=== PATIENT | female | born 1960 | race Caucasian/White ===

== ENCOUNTER 2018-01-06 21:31 | Inpatient (IN) | payer OTHER ==
[2018-01-06 21:57] LABS: Absolute Lymphocytes (CBC) 0.4 K/uL (0.7-4.9); Absolute Monocytes 0.4 K/uL (0.1-1.3); Absolute Neutrophil 2.8 K/uL (1.8-8.0); Basophils % 0.2 % (0-1.3); Eosinophils % 2.1 % (0-4.4); Hematocrit 33.8 % (36.0-45.0); Lymphocytes % 9.7 % (15.3-44.8); MCH 32.4 pg (27.0-35.0); MCV 92.7 fL (80-100); MPV 7.9 fL (7.6-11.3); Monocytes % 11.2 % (3.3-12.3); RBC Red Blood Cell Count 3.65 M/uL (3.86-4.86)
[2018-01-06 22:06] LABS: Bicarbonate 30 mEq/L (21-31); Glucose Level 126 mg/dL (65-120); Lipase 11 U/L (22-51); Sodium Level 138 mEq/L (135-145)
[2018-01-06] MEDS ORDERED: ONDANSETRON 4 MG/2 ML VIAL ONE (22:06)
[2018-01-06] MEDS ORDERED: FAMOTIDINE 20 MG/2 ML VIAL IV ONE (22:06)
[2018-01-06] MEDS ORDERED: MORPHINE 4 MG/ML SYR ONE ×3 (22:06→23:53)
[2018-01-06] MEDS ORDERED: NA CHLORIDE 0.9% 1,000 ML ONE (22:06)
[2018-01-06 22:12] LABS: ALT/SGPT 13 IU/L (10-60); AST/SGOT 23 IU/L (10-42); Albumin 3.3 g/dL (3.2-5.5); Alkaline Phosphatase 85 IU/L (42-121); BUN Blood Urea Nitrogen 21 mg/dL (6-20); Bilirubin Direct < 0.1 mg/dL (0-0.2); Bilirubin Total 0.7 mg/dL (0.3-1.2); Glomerular Filtration Rate > 90 mL/min (=/>90)
[2018-01-06 22:48] LABS: Urine Blood 3+ (NEG); Urine Glucose NEGATIVE (NEG); Urine Protein 3+ (NEG); Urine Specific Gravity 1.025 (1.005-1.030)
[2018-01-06 22:51] LABS: Urine Bacteria >50 /HPF (<20); Urine Culture Reflex Order REFLEXED; Urine RBC >50 /HPF (NONE SEEN); Urine Yeast PRESENT (NONE SEEN); Urine Yeast with Hyphae PRESENT
[2018-01-06 22:52] LABS: Urine Mucus HEAVY /HPF (NONE SEEN)
[2018-01-06] MEDS ORDERED: PROMETHAZINE 25 MG/ML VIAL ONE (23:00)
[2018-01-06] MEDS ORDERED: NA CHLORIDE 0.9% 100 ML IV ONE (23:00)
[2018-01-06] MEDS ORDERED: PIPER/TAZO/NS 3.375gm 3.375 GM/100 ML BAG ONE (23:38)
--- NOTE | 2018-01-07 01:27 | ER ---
Nurse's Notes [facility] Name: Antoinette Chao Age: 57 yrs Sex: Female : 1960 Arrival Date: 01/06/2018 Time: 21:33 Bed 4 Private MD: Diagnosis: Acute abdominal pain;acute small bowel obstruction;Acute UTI Presentation: 01/06 21:35 Presenting complaint: EMS states: that pt has been having nausea and vomiting x 5 days. fc Has had no solid food x 5 days and no fluids po x 3 days. Pt also having increased pain to lower abd and legs. Transition of care: patient was not received from another setting of care. Onset of symptoms was January 01, 2018. Care prior to arrival: None. 21:35 Acuity: CRISTINA 2 21:35 Method Of Arrival: EMS: [facility] Assessment: 22:03 General: Appears uncomfortable, slender, Behavior is crying, restless. Pain: Complains ak1 of pain in abdomen. EENT: No signs and/or symptoms were reported regarding the EENT system. Neuro: No deficits noted. Cardiovascular: No deficits noted. Respiratory: No deficits noted. GI: Abdomen is flat, Colostomy site is clean and dry. Ostomy appliance is intact. Reports lower abdominal pain, upper abdominal pain, tolerance of fluids, tolerance of food, vomiting, since 3 to 5 days [employer]OX [employer]. : No signs and/or symptoms were reported regarding the genitourinary system. Derm: No signs and/or symptoms reported regarding the dermatologic system. Musculoskeletal: No signs and/or symptoms reported regarding the musculoskeletal system. Historical: - Allergies: 21:39 Latex, Natural Rubber; fc 21:39 Ciprofloxacin; fc - Home Meds: 21:39 Anaspaz 0.125 mg oral TbDL 1 tab q 6 hrs prn [Active]; gabapentin 300 mg oral cap 3 fc caps q 6 hrs [Active]; tramadol 50 mg Oral tab 2 tabs every 6 hrs [Active]; Zofran (as hydrochloride) 8 mg Oral tab 1 tab every 6 hours [Active]; meloxicam 7.5 mg oral tab 1 tab once daily [Active]; Percocet 7.5-325 mg Oral tab .5 tab q 6hrs prn [Active]; Flexeril 5 mg Oral tab 1 tab q 8hrs prn [Active]; Compazine 10 mg Oral tab 1 tab q 6 hrs prn [Active]; - PMHx: 21:39 Stage 4 rectal cancer with mets; fc - PSHx: 21:39 port a cath; Bowel resection; fc - Immunization history:: Last tetanus immunization: unknown. - Social history:: Smoking status: Patient/guardian denies using tobacco. - Family history:: not pertinent. - Hospitalizations: : No recent hospitalization is reported. Screenin:35 Abuse screen: Denies threats or abuse. Nutritional screening: Has had N/V for 3 or more fc days. Tuberculosis screening: No symptoms or risk factors identified. Fall Risk None identified. Assessment: 22:05 Reassessment: Patient appears in no apparent distress at this time. No changes from ak1 previously documented assessment. see triage assessment. 22:32 General: Appears uncomfortable, ill, slender, Behavior is crying, restless, Reports ak1 pain 10/[address] Kelton Summers at [facility] oncology. . 22:33 Reassessment: pt vomited green bile, ERP notified for new orders due to vomiting. will ak1 continue to monitor. 23:45 Reassessment: pt tolerated NG well. pt with relief from low intermittent suction. ak1 01/07 01:20 Reassessment: Patient and/or family updated on plan of care and expected duration. Pain ak1 level reassessed. Patient states feeling better. Patient states symptoms have improved. Vital Signs: 01/06 21:35 BP 117 / 73; Pulse 102; Resp 18; Temp 97.7(O); Pulse Ox 100% on R/A; Weight 48.08 kg fc (R); Height 5 ft. 2 in. (157.48 cm) (R); Pain 10/10; 22:42 BP 114 / 58; Pulse 94; Resp 20; Temp 97.8(TE); Pulse Ox 100% on R/A; Pain 10/10; ak1 23:43 BP 147 / 76; Pulse 101; Resp 20; Temp 97.8(TE); Pulse Ox 100% on R/A; Pain 8/10; ak1 01/07 01:19 BP 109 / 52; Pulse 106; Resp 18; Temp 98.; Pulse Ox 100% on R/A; ak1 01/06 21:35 Body Mass Index 19.39 (48.08 kg, 157.48 cm) ED Course: 01/06 21:33 Patient arrived in ED. em1 21:35 Quincy Hernandez MD is Attending Physician. wa 21:35 Arm band placed on Patient placed in an exam room, on a stretcher. fc 21:35 Patient has correct armband on for positive identification. Placed in gown. Bed in low fc position. Call light in reach. Side rails up X2. 21:35 No provider procedures requiring assistance completed. fc 21:41 Triage completed. fc 21:42 Camila Bruce, RN is Primary Nurse. ak1 21:48 Initial lab(s) drawn, by ED staff, sent to lab. 3 22:02 Accessed Port-a-Cath. using accessed w/ # 20 Marte needle, ,sterile technique, per [address] protocol. Clean \T\ dry. Dressing intact. Good blood return. Flushes easily. 22:31 Urine collected: Lindo catheter specimen, tea colored, blood tinged, stool sample ak1 obtained from ostomy bag and sent to lab. 22:35 Urine Dipstick--Ancillary (enter results) Sent. ak1 23:37 NGT: inserted 12 Fr. via left nare. verified placement of air over stomach, verified tl2 return of gastric contents, to intermittent suction. Returned gastric contents. Returned bile. Patient tolerated well. 01/07 01:25 Gary Hercules MD is Hospitalizing Provider. hi 01:33 Patient admitted, IV remains in place. ak1 Administered Medications: 01/06 21:57 Drug: NS 0.9% 1000 ml Route: IV; Rate: 1000 ml; Site: Port-a-cath; tl2 23:17 Follow up: IV Status: Completed infusion ak1 21:57 Drug: Zofran 4 mg Route: IVP; Site: Port-a-cath; tl2 22:35 Follow up: Response: Nausea unchanged; Vomiting unchanged ak1 21:57 Drug: Pepcid 20 mg Route: IVP; Site: Port-a-cath; tl2 22:34 Follow up: Response: No adverse reaction ak1 21:58 Drug: morphine 4 mg Route: IVP; Site: Port-a-cath; tl2 22:35 Follow up: Response: No adverse reaction; Pain is unchanged, physician notified ak1 22:11 Drug: morphine 4 mg Route: IVP; Site: Port-a-cath; tl2 22:35 Follow up: Response: No adverse reaction; Pain is unchanged, physician notified ak1 22:46 Drug: Phenergan 12.5 mg Route: IVP; Site: Port-a-cath; ak1 23:17 Follow up: Response: No adverse reaction ak1 23:36 Drug: morphine 4 mg Route: IVP; Site: Port-a-cath; tl2 01/07 00:10 Follow up: Response: No adverse reaction ak1 01/06 23:36 Drug: Zosyn 3.375 grams Route: IVPB; Infused Over: 60 mins; Site: Port-a-cath; tl2 01/07 00:10 Follow up: IV Status: Completed infusion ak1 01:34 Follow up: IV Status: Completed infusion ak1 Outcome: 01:27 Decision to Hospitalize by Provider. hi 01:33 Condition: stable ak1 02:07 Admitted to Med/surg accompanied by tech, via stretcher, room 205, with chart. ak1 02:33 Patient left the ED. tl2 Signatures: Jackie Headley RN Felipe Partida em1 Camila Bruce RN RN ak1 Irasema Stafford RN RN tl2 aCrol Ann Dougherty 3 Quincy Hernandez MD MD hi
--- NOTE | 2018-01-07 01:28 | EDPHYS ---
Physician Documentation [facility] Name: Antoinette Chao Age: 57 yrs Sex: Female : 1960 Arrival Date: 01/06/2018 Time: 21:33 Bed 4 Private MD: ED Physician Quincy Hernandez HPI: 01/07 01:56 This 57 yrs old Female presents to ER via EMS with complaints of wa Nausea/Vomiting. 01:56 The patient presents to the emergency department with nausea, vomiting, abdominal pain, wa of the abdomen, described as achy, sharp, steady, and does not radiate. Onset: The symptoms/episode began/occurred 5 day(s) ago, and became worse today, inability to keep food and liquids down. severe pain. Possible causes: unknown, h/o rectal CA with mets. The symptoms are aggravated by nothing. The symptoms are alleviated by food . Associated signs and symptoms: Pertinent positives: abdominal pain, nausea, vomiting, Pertinent negatives: constipation, diarrhea, dysuria, fever. Severity of symptoms: At their worst the symptoms were severe in the emergency department the symptoms are worse. chronic pain but vomiting is acute. The patient has not recently seen a physician. Historical: - Allergies: 01/06 21:39 Latex, Natural Rubber; fc 21:39 Ciprofloxacin; fc - Home Meds: 21:39 Anaspaz 0.125 mg oral TbDL 1 tab q 6 hrs prn [Active]; gabapentin 300 mg oral cap 3 fc caps q 6 hrs [Active]; tramadol 50 mg Oral tab 2 tabs every 6 hrs [Active]; Zofran (as hydrochloride) 8 mg Oral tab 1 tab every 6 hours [Active]; meloxicam 7.5 mg oral tab 1 tab once daily [Active]; Percocet 7.5-325 mg Oral tab .5 tab q 6hrs prn [Active]; Flexeril 5 mg Oral tab 1 tab q 8hrs prn [Active]; Compazine 10 mg Oral tab 1 tab q 6 hrs prn [Active]; - PMHx: 21:39 Stage 4 rectal cancer with mets; fc - PSHx: 21:39 port a cath; Bowel resection; fc - Immunization history:: Last tetanus immunization: unknown. - Social history:: Smoking status: Patient/guardian denies using tobacco. - Family history:: not pertinent. - Hospitalizations: : No recent hospitalization is reported. ROS: 01/07 01:59 Constitutional: Negative for fever, chills, and weight loss, Eyes: Negative for injury, wa pain, redness, and discharge, ENT: Negative for injury, pain, and discharge, Neck: Negative for injury, pain, and swelling, Cardiovascular: Negative for chest pain, palpitations, and edema, Respiratory: Negative for shortness of breath, cough, wheezing, and pleuritic chest pain, Back: Negative for injury and pain, MS/Extremity: Negative for injury and deformity, Skin: Negative for injury, rash, and discoloration, Neuro: Negative for headache, weakness, numbness, tingling, and seizure, Psych: Negative for depression, anxiety, suicide ideation, homicidal ideation, and hallucinations. Abdomen/GI: Positive for abdominal pain, nausea and vomiting, nausea, vomiting, rectal pain, Negative for diarrhea. All other systems are negative. Exam: 02:01 Constitutional: This is a well developed, well nourished patient who is awake, alert, wa and in no acute distress. Head/Face: Normocephalic, atraumatic. Eyes: Pupils equal round and reactive to light, extra-ocular motions intact. Lids and lashes normal. Conjunctiva and sclera are non-icteric and not injected. Cornea within normal limits. Periorbital areas with no swelling, redness, or edema. Neck: Trachea midline, no thyromegaly or masses palpated, and no cervical lymphadenopathy. Supple, full range of motion without nuchal rigidity, or vertebral point tenderness. No Meningismus. Chest/axilla: Normal chest wall appearance and motion. Nontender with no deformity. No lesions are appreciated. Cardiovascular: Regular rate and rhythm with a normal S1 and S2. No gallops, murmurs, or rubs. Normal PMI, no JVD. No pulse deficits. Respiratory: Lungs have equal breath sounds bilaterally, clear to auscultation and percussion. No rales, rhonchi or wheezes noted. No increased work of breathing, no retractions or nasal flaring. Back: No spinal tenderness. No costovertebral tenderness. Full range of motion. Skin: Warm, dry with normal turgor. Normal color with no rashes, no lesions, and no evidence of cellulitis. MS/ Extremity: Pulses equal, no cyanosis. Neurovascular intact. Full, normal range of motion. Neuro: Awake and alert, GCS 15, oriented to person, place, time, and situation. Cranial nerves II-XII grossly intact. Motor strength 5/5 in all extremities. Sensory grossly intact. Cerebellar exam normal. Normal gait. Psych: Awake, alert, with orientation to person, place and time. Behavior, mood, and affect are within normal limits. 02:01 ENT: Mouth: Oral mucosa: dry, Posterior pharynx: dry. 02:02 Abdomen/GI: Inspection: distension, that is moderate, Bowel sounds: diminished, wa Palpation: moderate abdominal tenderness, in all quadrants. Vital Signs: 01/06 21:35 BP 117 / 73; Pulse 102; Resp 18; Temp 97.7(O); Pulse Ox 100% on R/A; Weight 48.08 kg fc (R); Height 5 ft. 2 in. (157.48 cm) (R); Pain 10/10; 22:42 BP 114 / 58; Pulse 94; Resp 20; Temp 97.8(TE); Pulse Ox 100% on R/A; Pain 10/10; ak1 23:43 BP 147 / 76; Pulse 101; Resp 20; Temp 97.8(TE); Pulse Ox 100% on R/A; Pain 8/10; ak1 01/07 01:19 BP 109 / 52; Pulse 106; Resp 18; Temp 98.; Pulse Ox 100% on R/A; ak1 01/06 21:35 Body Mass Index 19.39 (48.08 kg, 157.48 cm) Procedures: 02:07 Performed NG tube placement. NG tube placed through R nostril. pt tolerated well. wa MDM: 01/06 21:35 Patient medically screened. mi 01/07 02:02 Differential diagnosis: Nonspecific abd pain, gastritis, cholecystitis, pancreatitis, wa diverticulitis, viral gastroenteritis, r/o obstruction. Data reviewed: vital signs, nurses notes, lab test result(s), EKG, radiologic studies. Test interpretation: by ED physician or midlevel provider: labs noted for pyuria. . 02:05 Test interpretation: by ED physician or midlevel provider: labs noted for dimished wbc wa 4.6. low plt at 151. hyperglycemia of 157. Test interpretation: by ED physician or midlevel provider: CT abd/pelvis: read as SBO by radiologist. Response to treatment: the patient's symptoms have mildly improved after treatment. 02:08 Special discussion: required several rounds of IV morphine to pain control . will admit mi and consult surgery. 01/06 21:41 Order name: Basic Metabolic Panel mi 01/06 21:41 Order name: CBC with Diff mi 01/06 21:41 Order name: Hepatic Function mi 01/06 21:41 Order name: Lipase mi 01/06 21:41 Order name: Urine Microscopic Only mi 01/06 21:44 Order name: Occult Blood mi 01/06 21:44 Order name: Fecal Leukocyte Stain mi 01/06 21:44 Order name: CDIFF mi 01/06 21:59 Order name: CBC with Automated Diff [facility] 01/06 22:06 Order name: Basic Metabolic Panel [facility] 01/06 22:06 Order name: Lipase [facility] 01/06 22:13 Order name: Liver (Hepatic) Function [facility] 01/06 22:30 Order name: Urine Dipstick--Ancillary (enter results) [facility] 01/06 22:48 Order name: Urine Dipstick-Ancillary [facility] 01/06 21:41 Order name: IV Saline Lock; Complete Time: 21:43 mi 01/06 21:41 Order name: Labs collected and sent; Complete Time: 21:43 mi 01/06 21:41 Order name: Urine Dipstick-Ancillary (obtain specimen); Complete Time: 22:26 mi 01/06 21:42 Order name: CT Abd/Pelvis - Without Cont mi 01/06 22:52 Order name: Urine Microscopic Only; Complete Time: 22:57 [facility] 01/06 22:56 Order name: NG Tube; Complete Time: 23:36 mi Administered Medications: 01/06 21:57 Drug: NS 0.9% 1000 ml Route: IV; Rate: 1000 ml; Site: Port-a-cath; tl2 23:17 Follow up: IV Status: Completed infusion ak1 21:57 Drug: Zofran 4 mg Route: IVP; Site: Port-a-cath; tl2 22:35 Follow up: Response: Nausea unchanged; Vomiting unchanged ak1 21:57 Drug: Pepcid 20 mg Route: IVP; Site: Port-a-cath; tl2 22:34 Follow up: Response: No adverse reaction ak1 21:58 Drug: morphine 4 mg Route: IVP; Site: Port-a-cath; tl2 22:35 Follow up: Response: No adverse reaction; Pain is unchanged, physician notified ak1 22:11 Drug: morphine 4 mg Route: IVP; Site: Port-a-cath; tl2 22:35 Follow up: Response: No adverse reaction; Pain is unchanged, physician notified ak1 22:46 Drug: Phenergan 12.5 mg Route: IVP; Site: Port-a-cath; ak1 23:17 Follow up: Response: No adverse reaction ak1 23:36 Drug: morphine 4 mg Route: IVP; Site: Port-a-cath; tl2 01/07 00:10 Follow up: Response: No adverse reaction ak1 01/06 23:36 Drug: Zosyn 3.375 grams Route: IVPB; Infused Over: 60 mins; Site: Port-a-cath; tl2 01/07 00:10 Follow up: IV Status: Completed infusion ak1 01:34 Follow up: IV Status: Completed infusion ak1 Disposition: 01/07/18 01:27 Hospitalization ordered by Gary Hercules for Inpatient Admission. Preliminary diagnosis are Acute abdominal pain, acute small bowel obstruction, Acute UTI. - Bed requested for Telemetry/MedSurg (observation). - Status is Inpatient Admission. tl2 - Condition is Stable. - Problem is an acute exacerbation. - Symptoms have improved. UTI on Admission? Yes Signatures: Dispatcher [employer] Mago Antony RN RN kl Chretien, Felicia, RN RN fc Krenek, Amber, RN RN ak1 Irasema Stafford RN RN tl2 Quincy Hernandez MD MD wa
[2018-01-07] MEDS ORDERED: MORPHINE 2 MG/ML SYR IV PRN (02:53)
[2018-01-07] MEDS: ONDANSETRON 4 MG/2 ML VIAL IV PRN ×3 (02:58→20:59)
[2018-01-07] MEDS: NA CHLORIDE 0.9% 1,000 ML IV SCH ×3 (02:59→22:11)
[2018-01-07] MEDS ORDERED: PHENOL 1.4% ORAL SPRAY 180ML MM PRN (04:01)
[2018-01-07] MEDS: PROMETHAZINE 25 MG/ML VIAL IV PRN ×2 (04:12→17:30)
[2018-01-07 05:27] LABS: Absolute Lymphocytes (CBC) 0.3 K/uL (0.7-4.9); Absolute Monocytes 0.5 K/uL (0.1-1.3); Basophils % 0.3 % (0-1.3); Eosinophils % 2.9 % (0-4.4); MCH 31.6 pg (27.0-35.0); MCV 94.9 fL (80-100); Monocytes % 12.3 % (3.3-12.3); RBC Red Blood Cell Count 3.26 M/uL (3.86-4.86)
[2018-01-07 05:53] LABS: ALT/SGPT 10 IU/L (10-60); AST/SGOT 20 IU/L (10-42); Albumin 2.8 g/dL (3.2-5.5); Alkaline Phosphatase 75 IU/L (42-121); BUN Blood Urea Nitrogen 19 mg/dL (6-20); Bicarbonate 29 mEq/L (21-31); Bilirubin Total 0.6 mg/dL (0.3-1.2); Glomerular Filtration Rate > 90 mL/min (=/>90); Glucose Level 109 mg/dL (65-120); Potassium 3.8 mEq/L (3.6-5.0); Protein, Total 5.8 g/dL (6.0-8.3); Sodium Level 139 mEq/L (135-145)
--- NOTE | 2018-01-07 05:53 | P.HP ---
Certification for Inpatient Patient admitted to: Inpatient With expected LOS: >2 Midnights Practitioner: I am a practitioner with admitting privileges, knowledge of patient current condition, hospital course, and medical plan of care. Services: Services provided to patient in accordance with Admission requirements found in Title 42 Section 412.3 of the Code of Federal Regulations Patient History Date of Service: 01/07/18 Reason for admission: SBO History of Present Illness: Ms Chao is a 57 years old woman with history of stage IV coloractal cancer, S/P colon resection with subsequent colostoma and suprapubic cahteter placement, who came to ED complaining of abdominal pain associated with nausea and vomiting. Her abdominal pain is described as sharp, constant, 8/10 of intensity. She was not able to keep solid or liquids down. The patient denied fever or chills, however, she has had diaphoretics episodes. She states that previously to start with her symptoms, she ate stake and coleslaw. She has had SBO obstruction in the past and was told to be careful with this kind of food. In ER she was afebrile, WBC within normal limits, UA abnormal as expected in a patient with chronic catheter placement. CT abd/pelvis remarkable for SBO. The patient then had placed a NGT, improving her symptoms. Allergies adhesive Allergy (Verified 01/07/18 02:58) Hives Latex, Natural Rubber Allergy (Verified 01/07/18 01:39) Shortness of breath neomycin Allergy (Verified 01/07/18 02:58) Hives ciprofloxacin Adverse Reaction (Verified 01/07/18 01:39) Itching/Hives/Rash Home Medications: Cyclobenzaprine HCl [Flexeril] 5 mg PO Q8HP PRN 01/07/18 Gabapentin [Neurontin] 900 mg PO Q6H 01/07/18 Hyoscyamine Sulfate [Anaspaz] 0.125 mg PO Q6HP PRN 01/07/18 Meloxicam 7.5 mg PO DAILY 01/07/18 Ondansetron HCl [Zofran] 8 mg PO Q6HP PRN 01/07/18 Oxycodone HCl/Acetaminophen [Percocet 5-325 mg Tablet] 0.5 tab PO Q6HP PRN 01/07 Prochlorperazine Maleate [Compazine] 10 mg PO Q6HP PRN 01/07/18 Tramadol HCl [Ultram] 100 mg PO Q6H 01/07/18 - Past Medical/Surgical History Has patient received pneumonia vaccine in the past: Yes Diabetic: No -: Stage 4 cancer with mets -: colostomy -: APR -: Suprapubic catheter - Family History Mother -: Cancer Father -: Heart disease - Social History Smoking Status: Never smoker Alcohol use: No CD- Drugs: No Caffeine use: No Place of Residence: Home Review of Systems 10-point ROS is otherwise unremarkable Physical Examination - Vital Signs Temperature: 97.5 F Blood Pressure: 129/61 Pulse: 107 Respirations: 16 Pulse Ox (%): 98 - Physical Exam General: Alert, In no apparent distress HEENT: Atraumatic, PERRLA, Mucous membr. moist/pink, EOMI, Sclerae nonicteric Neck: Supple, 2+ carotid pulse no bruit, No LAD, Without JVD or thyroid abnormality Respiratory: Clear to auscultation bilaterally, Normal air movement Cardiovascular: Regular rate/rhythm, Normal S1 S2 Gastrointestinal: Hypoactive, Distended, Tenderness (diffuse with palpation) Musculoskeletal: No tenderness Integumentary: No rashes Neurological: Normal speech, Normal strength at 5/5 x4 extr, Normal tone, Normal affect Lymphatics: No axilla or inguinal lymphadenopathy - Studies Laboratory Data (last 24 hrs) 01/06/18 21:40: WBC 3.6 L, Hgb 11.8 L, Hct 33.8 L, Plt Count 308 01/06/18 21:40: Sodium 138, Potassium 4.0, BUN 21 H, Creatinine 0.59, Glucose 126 H, Total Bilirubin 0.7, AST 23, ALT 13, Alkaline Phosphatase 85, Lipase 11 L Assessment and Plan - Problems (Diagnosis) (1) SBO (small bowel obstruction) Current Visit: Yes Status: Acute (2) History of rectal cancer Current Visit: Yes Status: Acute - Plan Ms Chao will be admitted to the hospital due to SOB. She has improved her symptoms after NGT placement. UA is abnormal (expected in a patient with chronic catheter placement), WBC on the lower side, however she has no fever. Will continue with IV fluids, consult Dr Lee for evaluation and recommendations. - Advance Directives Does patient have a Living Will: No Does patient have a Durable POA for Healthcare: No - Code Status/Comfort Care Code Status Assessed: Yes Code Status: Do Not Resuscitate
[2018-01-07] MEDS ORDERED: KCL 20 MEQ/100 mL IVPB 20 MEQ/100 ML BAG IV SCH (07:00)
--- NOTE | 2018-01-07 08:39 | RAD REPORT ---
EXAM DESCRIPTION: CT - Abdomen Pelvis Wo Contrast - 01/07/2018 6:52 am CLINICAL HISTORY: Abdominal pain nausea and vomiting x5 days COMPARISON: None TECHNIQUE: Computed axial tomography of the abdomen and pelvis was obtained. IV and oral contrast we re not requested. A preliminary report was generated by [employer] and reviewed prior to dic tation All CT scans are performed using dose optimization technique as appropriate and may include automated exposure control or mA/KV adjustment according to patient size. FINDINGS: The evaluation of solid organs, vessels and bowel is limited secondary to the lack of con trast administration. Multiple, bilateral nodules are present within the lung bases varying in size from a couple millimete rs to 1 centimeter. The liver, spleen, pancreas, adrenals and kidneys appear grossly normal. A left lower quadrant colostomy is present. Moderate dilatation of jejunum and portion of the ileum i s present. The distal ileum is decompressed. A percutaneous drain is present within the pelvis. Gallstones are present without gallbladder wall thickening IMPRESSION: Mechanical obstruction involving the mid to distal ileum. Pulmonary nodules consistent with metastatic disease
[2018-01-07] MEDS: MORPHINE 2 MG/ML SYR IV PRN ×5 (09:25→19:34)
[2018-01-07] MEDS: MORPHINE 4 MG/ML SYR IV PRN ×2 (21:38→23:17)
[2018-01-07] MEDS: KETOROLAC 30 MG/ML INJ IV PRN (22:11)
[2018-01-07] MEDS ORDERED: LORazepam 2 MG/ML VIAL IV ONE (23:16)
[2018-01-07] MEDS ORDERED: LORazepam 2 MG/ML VIAL ONE (23:35)
[2018-01-08] MEDS: MORPHINE 4 MG/ML SYR IV PRN ×4 (01:12→14:40)
[2018-01-08] MEDS: NA CHLORIDE 0.9% 1,000 ML IV SCH ×2 (05:02→17:31)
[2018-01-08 05:51] LABS: BUN Blood Urea Nitrogen 18 mg/dL (6-20); Bicarbonate 25 mEq/L (21-31); Glomerular Filtration Rate > 90 mL/min (=/>90); Glucose Level 63 mg/dL (65-120); Phosphorus 2.6 mg/dL (2.5-4.3); Potassium 3.6 mEq/L (3.6-5.0); Sodium Level 143 mEq/L (135-145)
[2018-01-08 07:15] VITALS: BMI 18.4
[2018-01-08] MEDS ORDERED: KCL 20 MEQ/100 mL IVPB 20 MEQ/100 ML BAG IV SCH (09:00)
[2018-01-08] MEDS ORDERED: SODIUM CHLORIDE 0.9% 10ML INJ IV PRN (09:14)
--- NOTE | 2018-01-08 10:10 | CON ---
Date of Consultation: 01/07/2018 Reason For Consultation: Bowel obstruction. 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 She is metastatic and has received emotherapy for this. She has had a history of a colectomy with diversion. Her colectomy was an APR type colectomy with permanent colostomy creation and a suprapubic catheter placement. She came to [facility] ER with complaints of abdominal pain and nausea, vomiting. Her pain is described as sharp, constan t, 8/10 in intensity. She was unable to keep any p.o. material down. She had decreased output from her colostomy as well. She has had similar episodes before in the past and states that this felt sunny y similar to her last bowel obstruction. She believes it is related to modification of her diet as s he was not consistent with her previous diet due to having guests over. Past Medical History: Significant for stage IV rectal cancer with metastasis to the lungs. Past Surgical History: An APR and suprapubic catheter placement. Family History: Mother had cancer. Father had heart disease. She denies smoking, alcohol, or recre [facility] use. Allergies: TO ADHESIVES, LATEX, NEOMYCIN, CIPRO. Home Medications: Include cyclobenzaprine, Neurontin, hyoscyamine, meloxicam, Zofran, Percocet, Comp azine, and Ultram. Review of Systems: A 10-point review of systems other than HPI, she denies. Physical Examination: Vital Signs: At the time of my examination, her vital signs were a blood pressure 152/53, pulse is 9 5, respiratory rate is 20, temperature 97.3. General: She is awake, alert, and oriented. Psychiatric: She is appropriate and conversive, and in no apparent distress. HEENT: She is somewhat thin and frail. She has poor dentition. There is no scleral icterus. There is no JVD. Chest: Has normal expansion and excursion. Cardiovascular: Regular rate and rhythm. Pulmonary: Clear to auscultation bilaterally. Abdomen: Soft with mild global tenderness to palpation. She has a suprapubic catheter in place. korin has a colostomy on the left lower quadrant, which is functional at this time. She has only minimal tenderness to examination though there is no rebound, no guarding. She is minimally distended. She has an NG tube in place. Extremities: Thin and frail. Skin: Warm and dry. Laboratory Data: Reveals a white blood cell count of 3.8, hemoglobin is 10.3, hematocrit of 31.0, pl atelet count is 278, neutrophils are 77.5. Her sodium is 139, potassium 3.8, chloride 101, carbon di oxide 29, BUN 19, creatinine 0.5, glucose is 109. Her magnesium 2.0. Her total bilirubin 0.6. Her lipase was 11 on admission. Her UA was very contaminated as she has a permanent suprapubic catheter in place. She had imaging performed, which was a CT abdomen and pelvis, which was officially read as mechanical obstruction involving the mid to distal ileum. Pulmonary nodules consistent with metasta tic disease are evident. Assessment And Plan: This is a 57-year-old female, who comes in with signs and symptoms of a small-b owel obstruction in the context of a stage IV metastatic rectal cancer. 1.IV fluid hydration. 2.Continue NG tube decompression. 3.Serial abdominal exams. 4.I have explained the risks, benefits, and alternatives of surgical intervention. The patient stat es she does not wish any surgical intervention at this time and I have agreed that the patient would benefit from nonoperative management due to her significant medical history. In addition, she has re cently completed rounds of FOLFOX, FOLFIRI, and she is currently on another chemotherapy agent, which she cannot recall at this time with minimal response. Therefore, I feel that she is likely in a hos pice type of situation and have discussed this with the patient. 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 Thank you for this interesting consult. I will follow along with you. MARIA DEL CARMEN/KATIE Voice ID: [id number] Report ID: [id number]
[2018-01-08 12:36] VITALS: BP 108/55; TEMP 97.7
[2018-01-08 14:14] VITALS: O2SAT 98
[2018-01-08] MEDS: ONDANSETRON 4 MG/2 ML VIAL IV PRN (14:40)
[2018-01-08] MEDS: KETOROLAC 30 MG/ML INJ IV PRN (15:54)
--- NOTE | 2018-01-08 16:37 | P.SSS ---
Patient History Date of Service: 01/08/18 Reason for admission: SBO History of Present Illness: See HPI Allergies adhesive Allergy (Verified 01/07/18 02:58) Hives Latex, Natural Rubber Allergy (Verified 01/07/18 01:39) Shortness of breath neomycin Allergy (Verified 01/07/18 02:58) Hives ciprofloxacin Adverse Reaction (Verified 01/07/18 01:39) Itching/Hives/Rash Home Medications: Cyclobenzaprine HCl [Flexeril] 5 mg PO Q8HP PRN 01/07/18 Gabapentin [Neurontin*] 900 mg PO Q6H 01/07/18 Hyoscyamine Sulfate [Anaspaz] 0.125 mg PO Q6HP PRN 01/07/18 Meloxicam 7.5 mg PO DAILY 01/07/18 Ondansetron HCl [Zofran] 8 mg PO Q6HP PRN 01/07/18 Oxycodone HCl/Acetaminophen [Percocet 5-325 mg Tablet] 0.5 tab PO Q6HP PRN 01/07 Prochlorperazine Maleate [Compazine] 10 mg PO Q6HP PRN 01/07/18 Tramadol HCl [Ultram] 100 mg PO Q6H 01/07/18 - Past Medical/Surgical History Has patient received pneumonia vaccine in the past: Yes Diabetic: No -: Stage 4 cancer with mets -: colostomy -: APR -: Suprapubic catheter - Family History Mother -: Cancer Father -: Heart disease - Social History Smoking Status: Never smoker Alcohol use: No CD- Drugs: No Caffeine use: No Place of Residence: Home Review of Systems General: As per HPI Physical Examination - Vital Signs Temperature: 97.7 F Blood Pressure: 108/55 Pulse: 98 Respirations: 18 Pulse Ox (%): 96 - Physical Exam General: Alert, In no apparent distress, Oriented x3 HEENT: Atraumatic, PERRLA, Mucous membr. moist/pink, EOMI, Sclerae nonicteric Neck: Supple, 2+ carotid pulse no bruit, No LAD, Without JVD or thyroid abnormality Respiratory: Clear to auscultation bilaterally, Normal air movement Cardiovascular: Regular rate/rhythm, Normal S1 S2 Gastrointestinal: Normal bowel sounds, No tenderness Musculoskeletal: No tenderness Integumentary: No rashes Neurological: Normal gait, Normal speech, Normal strength at 5/5 x4 extr, Normal tone, Normal affect Lymphatics: No axilla or inguinal lymphadenopathy - Studies Microbiology Data (last 24 hrs): 01/06/18 22:28 Stool Fecal Leukocyte Stain - Final - Diagnosis (Problem(s)) (1) History of rectal cancer Current Visit: Yes Status: Resolved (2) SBO (small bowel obstruction) Current Visit: Yes Status: Resolved - Disposition Disposition: ROUTINE DISCHARGE Condition: GOOD Diet: Regular Activity: Ad yuni
[2018-01-08] MEDS ORDERED: HEPARIN 500 UNIT/5 ML SYR IV PRN (17:00)
[2018-01-08] MEDS ORDERED: ENSURE CLEAR 200 ML CAN PO SCH (21:00)
[2018-01-09] MEDS ORDERED: PANTOPRAZOLE 40 MG INJ IVP SCH (09:00)
--- NOTE | 2018-01-09 13:44 | P.PN ---
Date of Service: 01/09/18 Patient discharge yesterday by Dr. Abraham I was off service Received called from microbiology who alerted me to the fact that patient has positive C. diff result. Called charge nurse Flash to call in Flagyl 500 mg p.o. q.8 hr for 14 days. Patient to follow up closely with surgeon and PCP
== END 2018-01-08 18:29 | disposition home or self-care (01) | DRG 389 ==
LOC: ER 21:31 → ERHOLD 01-07 01:32 → 2ND 01-07 02:00
PROVIDERS: ADMIT Internal Medicine; ATTEND Family Medicine
DX: K56.609 Unspecified intestinal obstruction, unspecified as to partial versus complete obstruction (principal); C20 Malignant neoplasm of rectum; C78.00 Secondary malignant neoplasm of unspecified lung; A04.72 Enterocolitis due to Clostridium difficile, not specified as recurrent
CPT/HCPCS: 36415; 74176; 80048; 80053; 80076; 81003; 81015; 83690; 83735; 84100; 85025; 87040; 87077; 87086; 87088; 87186; 87493; 89055; 96361; 96365; 96375; 99285; J1642; J2270; J2405; J2543; J2550; J7030